=== PATIENT | male | born 1980 | race Caucasian/White ===

== ENCOUNTER 2021-07-25 18:45 | Emergency (ER) | payer MEDICAID ==
[~2021-07-25] VITALS: Ht 172.7 cm; Wt 95.3 kg
--- NOTE | 2021-07-25 19:45 | NUR ---
Pt was triaged and placed back in ER waiting room. Pt's friend stated they are going to go eat dinner and come back after.
--- NOTE | 2021-07-25 20:25 | NUR ---
Pt was not found in ER waiting room or outside ER.
[2021-07-25] MEDS ORDERED: DEXAMETHASONE SOD PHOSPHATE 4 MG INJ IM ONE (22:00)
[2021-07-25] MEDS ORDERED: MORPHINE SULFATE 4 MG/1 ML DISP.SYRIN IM ONE (22:00)
[2021-07-25] MEDS ORDERED: MORPHINE SULFATE 4 MG/1 ML DISP.SYRIN ONE (22:05)
[2021-07-25] MEDS ORDERED: DEXAMETHASONE SOD PHOSPHATE 10 MG INJ ONE (22:05)
[2021-07-25] MEDS ORDERED: IBUP800T54 PO (22:38)
[2021-07-25] MEDS ORDERED: HYDR-4209 PO (22:38)
--- NOTE | 2021-07-25 22:43 | NUR ---
Patient discharged to home in stable condition. Written and verbal after care instructions given. Patient verbalizes understanding of instructions. Stressed follow up or return to ER for worsening s/s.
[2021-07-25 22:44] VITALS: BP 133/77
== END 2021-07-25 22:45 | disposition home or self-care (01) ==
LOC: ER 18:49
DX: M25.512 Pain in left shoulder (principal); Z79.1 Long term (current) use of non-steroidal anti-inflammatories (NSAID); Z79.899 Other long term (current) drug therapy
CPT/HCPCS: 73030; 96372 ×2; 99284; J1100; J2270; A4663